=== PATIENT | female | born 1970 | race Caucasian/White ===

== ENCOUNTER → 2016-04-27 | Outpatient (CLI) | payer OTHER ==
[2016-04-27 15:29] LABS: CH 31.9; CHCM 33.1; HCT 40.6 % (34.0-46.0); HDW 2.05; HGB 13.5 gm/dL (11.4-16.0); MCH 32.1 pg (25.0-35.0); MCHC 33.2 g/dL (31.0-37.0); MCV 96.7 fL (80.0-100.0); Mean Platelet Volume 7.3; RDW 12.8 % (11.5-15.5); WBC 11.2 k/uL (3.8-10.6)
[2016-04-27 15:59] LABS: Prolactin 103.8 ng/mL (3.0-18.6)
== END | disposition home or self-care (01) ==
LOC: LABWHC1 14:51
PROVIDERS: ATTEND Obstetrics & Gynecology
DX: N92.0 Excessive and frequent menstruation with regular cycle (principal)
CPT/HCPCS: 36415; 82670; 82947; 83001; 83002; 84146; 84443; 85027

== ENCOUNTER → 2016-05-20 | Outpatient (CLI) | payer OTHER | END | disposition home or self-care (01) | LOC: LABWHC1 11:03 | PROVIDERS: ATTEND Obstetrics & Gynecology | DX: E03.9 Hypothyroidism, unspecified (principal) | CPT/HCPCS: 36415; 84432; 84439; 84481; 86800 ==

== ENCOUNTER → 2016-06-15 | Outpatient (CLI) | payer OTHER ==
[2016-06-15 10:39] LABS: Basophils # (A) 0.1 k/uL (0-0.2); Basophils % (A) 1 %; CH 31.6; CHCM 32.7; Eosinophils # (A) 0.1 k/uL (0-0.7); Eosinophils % (A) 1 %; HCT 41.6 % (34.0-46.0); HDW 2.18; HGB 13.6 gm/dL (11.4-16.0); Luc # (Auto) 0.23; Luc % (Auto) 3; Lymphocytes # (A) 2.1 k/uL (1.0-4.8); Lymphocytes % (A) 24 %; MCH 31.7 pg (25.0-35.0); MCHC 32.7 g/dL (31.0-37.0); MCV 96.9 fL (80.0-100.0); Mean Platelet Volume 6.8; Monocytes # (A) 0.5 k/uL (0-1.0); Monocytes % (A) 5 %; Neutrophils # (A) 5.7 k/uL (1.3-7.7); Neutrophils % (A) 66 %; RBC 4.29 m/uL (3.80-5.40); RDW 13.6 % (11.5-15.5); WBC 8.6 k/uL (3.8-10.6); WBC (Perox) 8.96
== END | disposition home or self-care (01) ==
LOC: LABPAT 10:01
PROVIDERS: ATTEND Obstetrics & Gynecology
DX: Z01.818 Encounter for other preprocedural examination (principal)
CPT/HCPCS: 85025

== ENCOUNTER 2016-06-18 09:58 | Day surgery (SDC) | payer OTHER ==
[2016-06-16 12:42] VITALS: BMI 34.1
[~2016-06-18 09:58] MED LIST: HYDROmorphone 1 MG/ML 1 ML SYRINGE IVP PRN; LACTATED RINGERS 1,000 ML IV SCH; MIDAZOLAM 2 MG/2 ML VIAL IV PRN; ONDANSETRON 4 MG/2 ML VIAL IVP ONE; Pre Op ABX Message 1 EACH MISC MISCELLANE ONE
[2016-06-18] MEDS ORDERED: LIDOCAINE 1% 20 ML VIAL (10MG/ML) FOR IV START INTRADERMA ONE (10:50)
--- NOTE | 2016-06-18 11:13 | P.HPOB ---
History of Present Illness H&P Date: 06/18/16 Chief Complaint: Menorrhagia Patient is a 45-year-old female with very heavy periods. She notes that she bleeds for 5-7 days with very very heavy bleeding every cycle. 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 She is scheduled for D&C hysteroscopy to verify that there is no other abnormal tissue present and she would like a NovaSure to try and stop the bleeding that she can have normal functioning. She is recently bleeding almost every 2 weeks. On physical exam vital signs are stable and afebrile. Heart regular, lungs clear, extremities without pain. Pelvic exam is otherwise unremarkable. Abdomen is soft and nontender bowel sounds are noted. Assessment menorrhagia. Plan D&C hysteroscopy with NovaSure. Risks/benefits/alternatives were reviewed in detail and all questions have been answered for the patient prior to proceeding to the operating room. Past Medical History Past Medical History: Fibromyalgia, Hypertension, Thyroid Disorder History of Any Multi-Drug Resistant Organisms: None Reported Past Surgical History: Back Surgery, Tubal Ligation Additional Past Surgical History / Comment(s): D & C Past Anesthesia/Blood Transfusion Reactions: No Reported Reaction Past Psychological History: Bipolar Smoking Status: Current every day smoker Past Alcohol Use History: Occasional Additional Past Alcohol Use History / Comment(s): SMOKES 1/2 PPD SINCE 1996 OR LONGER Past Drug Use History: None Reported - Past Family History Father Family Medical History: Deep Vein Thrombosis (DVT) Medications and Allergies Home Medications Medication Instructions Recorded Confirmed Type Chlorthalidone [Hygroton] 25 mg PO DAILY 03/14/14 06/16/16 History clonazePAM [Clonazepam] 0.5 mg PO DIRECTED PRN 03/16/14 06/18/16 History traZODone HCL [Desyrel] 50 mg PO HS 03/16/14 06/16/16 History ARIPiprazole [Abilify] 5 mg PO HS 06/16/16 06/16/16 History Cyclobenzaprine [Flexeril] 10 mg PO HS 06/16/16 06/16/16 History DULoxetine HCL [Cymbalta] 60 mg PO HS 06/16/16 06/16/16 History Gabapentin 800 mg PO TID 06/16/16 06/16/16 History HYDROcodone/APAP 7.5-325MG [[place] 1 tab PO BID 06/16/16 06/16/16 History 7.5-325] Levothyroxine Sodium [Synthroid] 50 mcg PO DAILY 06/16/16 06/16/16 History amLODIPine [Norvasc] 5 mg PO DAILY 06/16/16 06/16/16 History lamoTRIgine [LaMICtal] 150 mg PO BID 06/16/16 06/16/16 History Allergies Allergy/AdvReac Type Severity Reaction Status Date / Time quetiapine fumarate AdvReac Intermediate Confusion Verified 06/18/16 10:36 [From Seroquel] Exam Osteopathic Statement: *. No significant issues noted on an osteopathic structural exam other than those noted in the History and Physical/Consult. - Vital Signs Vital signs: Vital Signs Temp Pulse Resp BP Pulse Ox 06/18/16 10:56 98.1 F 86 16 161/91 98
[2016-06-18 11:21] LABS: Anion Gap 9 mmol/L; Blood Urea Nitrogen 21 mg/dL (7-17); Calcium 9.1 mg/dL (8.4-10.2); Carbon Dioxide 22 mmol/L (22-30); Chloride 110 mmol/L (98-107); Glucose 93 mg/dL (74-99); Non-African American GFR(MDRD) >60 (>60 ml/min/1.73 sqM); Potassium 4.4 mmol/L (3.5-5.1); Sodium 141 mmol/L (137-145)
[2016-06-18] MEDS ORDERED: PROPOFOL 10 MG/ML 20 ML VIAL IV ONE (11:35)
[2016-06-18] MEDS ORDERED: MIDAZOLAM 2 MG/2 ML VIAL ONE (11:35)
[2016-06-18] MEDS ORDERED: fentaNYL (PF) 50 MCG/ML 2 ML AMP ONE (11:35)
[2016-06-18] MEDS ORDERED: LIDOCAINE 1% INJ 10MG/ML (20 ML MDV) ONE (11:35)
[2016-06-18] MEDS ORDERED: ROCURONIUM BROMIDE 10 MG/ML 10 ML VIAL IV ONE ×2 (11:35)
[2016-06-18] MEDS ORDERED: KETOROLAC 30 MG/ML 1 ML VIAL ONE (11:35)
--- NOTE | 2016-06-18 12:07 | P.OP ---
Date of Procedure: 06/18/16 Preoperative Diagnosis: Menorrhagia Postoperative Diagnosis: Same Procedure(s) Performed: D&C with hysteroscopy and NovaSure Anesthesia: SKYLER Surgeon: Zain Parker Estimated Blood Loss (ml): 3 Pathology: other (Urine curettings) Condition: stable Disposition: same day Operative Findings: Tissue pathology pending Description of Procedure: Patient was taken to the operating suite where a general anesthetic was found be adequate. She was prepped and draped in the normal sterile fashion and placed in the dorsal lithotomy position. Initially a weighted speculum was inserted into the vagina and the anterior lip cervix was grasped with a single- tooth tenaculum. Cervix was then dilated and camera was inserted. No gross pathology was noted therefore camera was removed and sharp curettings of the endometrium were obtained. This tissue was collected and placed on Telfa. Once accomplished NovaSure system was inserted with length of 4 and a width of 3 it was tested. Once it passes patency test it was enabled and then activated and burned for 2 minutes. Conclusion the burn system was removed and camera was reinserted excellent burn was noted at this point. Sponge, lap, needle counts were correct 2 all instruments were removed and patient was taken to the recovery room in stable and satisfactory condition. Plan - Discharge Summary New Discharge Prescriptions: Ibuprofen [Motrin] 600 mg PO Q6HR PRN #30 tab PRN Reason: Pain Discharge Medication List Chlorthalidone [Hygroton] 25 mg PO DAILY 03/14/14 [History] clonazePAM [Clonazepam] 0.5 mg PO DIRECTED PRN 03/16/14 [History] traZODone HCL [Desyrel] 50 mg PO HS 03/16/14 [History] ARIPiprazole [Abilify] 5 mg PO HS 06/16/16 [History] Cyclobenzaprine [Flexeril] 10 mg PO HS 06/16/16 [History] DULoxetine HCL [Cymbalta] 60 mg PO HS 06/16/16 [History] Gabapentin 800 mg PO TID 06/16/16 [History] HYDROcodone/APAP 7.5-325MG [[place] 7.5-325] 1 tab PO BID 06/16/16 [History] Levothyroxine Sodium [Synthroid] 50 mcg PO DAILY 06/16/16 [History] amLODIPine [Norvasc] 5 mg PO DAILY 06/16/16 [History] lamoTRIgine [LaMICtal] 150 mg PO BID 06/16/16 [History] Ibuprofen [Motrin] 600 mg PO Q6HR PRN #30 tab 06/18/16 [Rx] Follow up Appointment(s)/Referral(s): Zain Parker DO [Doctor of Osteopathic Medicine] - 2 Weeks Activity/Diet/Wound Care/Special Instructions: No heavy lifting, limit stairs and driving and pelvic rest. If any high temperatures, heavy bleeding, or severe pain call my office
[2016-06-18 12:22] VITALS: TEMP 97.7
[2016-06-18 13:27] VITALS: BP 169/95; PULSE 87; RESP 18
== END 2016-06-18 13:45 | disposition home or self-care (01) ==
LOC: OR 09:58
PROVIDERS: ATTEND Obstetrics & Gynecology
DX: N92.0 Excessive and frequent menstruation with regular cycle (principal); N93.8 Other specified abnormal uterine and vaginal bleeding; N85.9 Noninflammatory disorder of uterus, unspecified; M79.7 Fibromyalgia; I10 Essential (primary) hypertension; E07.9 Disorder of thyroid, unspecified; F31.9 Bipolar disorder, unspecified; F17.200 Nicotine dependence, unspecified, uncomplicated; Z79.891 Long term (current) use of opiate analgesic; Z79.899 Other long term (current) drug therapy; Z98.51 Tubal ligation status
CPT/HCPCS: 58563; 81025; 88305; 80048; J2250; J2405; J2001; J3010; J1885; J2704

== ENCOUNTER → 2016-08-14 | Outpatient (CLI) | payer OTHER ==
[2016-08-14 16:43] LABS: Follicle Stimulating Hormone 4.8 mIU/mL; Prolactin 27.2 ng/mL (3.0-18.6)
== END | disposition home or self-care (01) ==
LOC: LABWHC1 15:58
PROVIDERS: ATTEND Internal Medicine Endocrinology, Diabetes & Metabolism
DX: E05.90 Thyrotoxicosis, unspecified without thyrotoxic crisis or storm (principal)
CPT/HCPCS: 36415; 82670; 83001; 83002; 84146; 84439; 84443

== ENCOUNTER → 2017-03-22 | Outpatient (CLI) | payer OTHER ==
--- NOTE | 2017-03-23 11:24 | MM ---
Reason for exam: screening (asymptomatic). Last mammogram was performed 1 year and 6 months ago. History: Took hormonal contraceptives for 7 years. Physical Findings: A clinical breast exam by your physician is recommended on an annual basis and results should be correlated with mammographic findings. MG Screening Mammo w CAD Bilateral CC and MLO view(s) were taken. Prior study comparison: September 26, 2015, bilateral MG screening mammo w CAD. July 27, 2014, left breast MG work up mamm w CAD LT. The breast tissue is heterogeneously dense. This may lower the sensitivity of mammography. Focal asymmetry 4.5cm from nipple right central upper breast. ASSESSMENT: Incomplete: need additional imaging evaluation, BI-RAD 0 RECOMMENDATION: Special view mammogram of the right breast. If lesion persists on supplemental views, image directed ultrasound is recommended. [facility] will attempt to contact patient to return for supplemental views and ultrasound if indicated.
== END | disposition home or self-care (01) ==
LOC: RADMAMWWP 16:13
PROVIDERS: ATTEND Internal Medicine
DX: Z12.31 Encounter for screening mammogram for malignant neoplasm of breast (principal)
CPT/HCPCS: 77067

== ENCOUNTER → 2017-03-31 | Outpatient (CLI) | payer OTHER ==
--- NOTE | 2017-03-31 10:30 | MM ---
Reason for exam: additional evaluation requested from abnormal screening. Last mammogram was performed less than 1 month ago. History: Took hormonal contraceptives for 7 years. Physical Findings: Nurse did not find any significant physical abnormalities on exam. MG Work Up Mamm w CAD RT Spot compression CC, spot compression MLO, and LM view(s) were taken of the right breast. Prior study comparison: March 22, 2017, bilateral MG screening mammo w CAD. September 26, 2015, bilateral MG screening mammo w CAD. There are scattered fibroglandular densities. No distinct lesion on additional views. These results were verbally communicated with the patient and result sheet given to the patient on 03/31/17. ASSESSMENT: Negative, BI-RAD 1 RECOMMENDATION: Return to routine screening mammogram schedule for both breasts.
== END | disposition home or self-care (01) ==
LOC: RADMAMWWP 09:39
PROVIDERS: ATTEND Internal Medicine
DX: R92.8 Other abnormal and inconclusive findings on diagnostic imaging of breast (principal)
CPT/HCPCS: 77065

== ENCOUNTER 2019-10-22 18:27 | Observation (INO) | payer OTHER ==
[2019-10-22] MEDS ORDERED: ASPIRIN 81 MG PO STA (19:20)
[2019-10-22] MEDS ORDERED: SODIUM CHLORIDE 0.9% 1,000 ML IV STA ×2 (19:20)
--- NOTE | 2019-10-22 19:46 | XR ---
EXAMINATION TYPE: XR chest 2V DATE OF EXAM: 10/22/2019 COMPARISON: NONE HISTORY: Pain TECHNIQUE: 2 views FINDINGS: Heart and mediastinum are normal. Lungs are clear. Diaphragm is normal. Bony thorax appears normal. IMPRESSION: Normal chest.
--- NOTE | 2019-10-22 20:11 | ED ---
Recheck HPI - General Chief Complaint: Recheck/Abnormal Lab/Rx Stated Complaint: Hypertensive Time Seen by Provider: 10/22/19 18:50 Source: patient, RN notes reviewed, old records reviewed Mode of arrival: ambulatory Limitations: no limitations - History of Present Illness Initial Comments: Patient 48-year-old female presents to return today with abnormal blood pressures today. She states that she isn't feeling stress complaining of a headache. She states that she was at work today and had some pain go down the right arm. She went to her work's office and they took her blood pressure. Was found be 190/100. They sent her home. She states she went home and slept and woke up with no further arm pain. She states that she rechecked her blood p ressure continued to be elevated to 158/100. She also complains of pain between her bra strap and her shoulder blades, and occasional pain going to the left jaw and neck today. She denies current chest pain at this time. Patient states that she has had lisinopril and amlodipine to manage her blood pressure. She is a smoker. She does report positive family history of heart disease. - Related Data Home Medications Medication Instructions Recorded Confirmed Chlorthalidone [Hygroton] 25 mg PO DAILY 03/14/14 06/16/16 clonazePAM [Clonazepam] 0.5 mg PO DIRECTED PRN 03/16/14 06/18/16 traZODone HCL [Desyrel] 50 mg PO HS 03/16/14 06/16/16 ARIPiprazole [Abilify] 5 mg PO HS 06/16/16 06/16/16 Cyclobenzaprine [Flexeril] 10 mg PO HS 06/16/16 06/16/16 DULoxetine HCL [Cymbalta] 60 mg PO HS 06/16/16 06/16/16 Gabapentin 800 mg PO TID 06/16/16 06/16/16 HYDROcodone/APAP 7.5-325MG [[place] 1 tab PO BID 06/16/16 06/16/16 7.5-325] Levothyroxine Sodium [Synthroid] 50 mcg PO DAILY 06/16/16 06/16/16 amLODIPine [Norvasc] 5 mg PO DAILY 06/16/16 06/16/16 lamoTRIgine [LaMICtal] 150 mg PO BID 06/16/16 06/16/16 Previous Rx's Medication Instructions Recorded Ibuprofen [Motrin] 600 mg PO Q6HR PRN #30 tab 06/18/16 Allergies Allergy/AdvReac Type Severity Reaction Status Date / Time quetiapine fumarate AdvReac Intermediate Confusion Verified 10/22/19 18:29 [From Seroquel] Review of Systems ROS Statement: Those systems with pertinent positive or pertinent negative responses have been documented in the HPI. ROS Other: All systems not noted in ROS Statement are negative. Past Medical History Past Medical History: Fibromyalgia, Hypertension, Osteoarthritis (OA), Thyroid Disorder History of Any Multi-Drug Resistant Organisms: None Reported, MRSA Date of last positivie culture/infection: stomach MDRO Source:: 2011 Past Surgical History: Back Surgery, Tubal Ligation, Uterine Ablation Additional Past Surgical History / Comment(s): D& C Past Psychological History: Anxiety, Bipolar, Depression Smoking Status: Current every day smoker Past Alcohol Use History: Rare Past Drug Use History: Marijuana General Exam - General Exam Comments Initial Comments: Alert and oriented 38 rolled female. No significant distress. Limitations: no limitations General appearance: alert, in no apparent distress Head exam: Present: atraumatic, normocephalic, normal inspection Eye exam: Present: normal appearance, PERRL, EOMI. Absent: scleral icterus, conjunctival injection, periorbital swelling ENT exam: Present: normal exam, mucous membranes moist Neck exam: Present: normal inspection. Absent: tenderness, meningismus, lymphad enopathy Respiratory exam: Present: normal lung sounds bilaterally. Absent: respiratory distress, wheezes, rales, rhonchi, stridor Cardiovascular Exam: Present: regular rate, normal rhythm, normal heart sounds. Absent: systolic murmur, diastolic murmur, rubs, gallop, clicks GI/Abdominal exam: Present: soft, normal bowel sounds. Absent: distended, tenderness, guarding, rebound, rigid Extremities exam: Present: normal inspection, full ROM, normal capillary refill. Absent: tenderness, pedal edema, joint swelling, calf tenderness Back exam: Present: normal inspection Neurological exam: Present: alert, oriented X3, CN II-XII intact Psychiatric exam: Present: normal affect, normal mood Skin exam: Present: warm, dry, intact, normal color. Absent: rash Course Vital Signs 0910/22/19 10/22/19 18:29 19:53 20:00 Temperature 98.1 F Pulse Rate 93 71 75 Respiratory 18 18 20 Rate Blood Pressure 171/92 146/77 143/85 O2 Sat by Pulse 99 Oximetry 10/22/19 10/22/19 20:15 20:45 Temperature Pulse Rate 79 75 Respiratory 18 22 Rate Blood Pressure 143/85 141/76 O2 Sat by Pulse Oximetry Medical Decision Making - Medical Decision Making [id number] female presents today for concern for abnormal blood pressures, and description of chest pressure between her shoulder blades and occasional jaw pain. Patient this time has negative troponin. No significant EKG change. She has a positive risk factors including smoking and family history of heart disease and labile blood pressure was going on today. I discussed possible cardiac obstipation she is agreeable to this. Patient's case was discussed with Dr. Espinal Discussed the Case with Dr. Warner. - Lab Data Result diagrams: 10/22/19 19:55 10/22/19 19:55 Lab Results 10/22/19 10/22/19 10/22/19 Range/Units 19:55 19:55 19:55 WBC 10.8 H (3.8-10.6) k/uL RBC 4.54 (3.80-5.40) m/uL Hgb 13.8 (11.4-16.0) gm/dL Hct 42.2 (34.0-46.0) % MCV 93.0 (80.0-100.0) fL MCH 30.4 (25.0-35.0) pg MCHC 32.7 (31.0-37.0) g/dL RDW 12.9 (11.5-15.5) % Plt Count 284 (150-450) k/uL Neutrophils % 58 % Lymphocytes % 33 % Monocytes % 5 % Eosinophils % 3 % Basophils % 1 % Neutrophils # 6.3 (1.3-7.7) k/uL Lymphocytes # 3.6 (1.0-4.8) k/uL Monocytes # 0.5 (0-1.0) k/uL Eosinophils # 0.3 (0-0.7) k/uL Basophils # 0.1 (0-0.2) k/uL PT 9.5 (9.0-12.0) sec INR 0.9 (<1.2) APTT 25.0 (22.0-30.0) sec Sodium 136 L (137-145) mmol/L Potassium 4.0 (3.5-5.1) mmol/L Chloride 107 (98-107) mmol/L Carbon Dioxide 22 (22-30) mmol/L Anion Gap 7 mmol/L BUN 18 H (7-17) mg/dL Creatinine 0.56 (0.52-1.04) mg/dL Est GFR (CKD-EPI)AfAm >90 (>60 ml/min/1.73 sqM) Est GFR (CKD-EPI)NonAf >90 (>60 ml/min/1.73 sqM) Glucose 100 H (74-99) mg/dL Calcium 9.1 (8.4-10.2) mg/dL Magnesium 2.1 (1.6-2.3) mg/dL Total Bilirubin 0.5 (0.2-1.3) mg/dL AST 32 (14-36) U/L ALT 25 (4-34) U/L Alkaline Phosphatase 58 (38-126) U/L Troponin I (0.000-0.034) ng/mL NT-Pro-B Natriuret Pep pg/mL Total Protein 7.0 (6.3-8.2) g/dL Albumin 4.1 (3.5-5.0) g/dL Amylase 35 (30-110) U/L Lipase 54 (23-300) U/L 10/22/19 10/22/19 Range/Units 19:55 19:55 WBC (3.8-10.6) k/uL RBC (3.80-5.40) m/uL Hgb (11.4-16.0) gm/dL Hct (34.0-46.0) % MCV (80.0-100.0) fL MCH (25.0-35.0) pg MCHC (31.0-37.0) g/dL RDW (11.5-15.5) % Plt Count (150-450) k/uL Neutrophils % % Lymphocytes % % Monocytes % % Eosinophils % % Basophils % % Neutrophils # (1.3-7.7) k/uL Lymphocytes # (1.0-4.8) k/uL Monocytes # (0-1.0) k/uL Eosinophils # (0-0.7) k/uL Basophils # (0-0.2) k/uL PT (9.0-12.0) sec INR (<1.2) APTT (22.0-30.0) sec Sodium (137-145) mmol/L Potassium (3.5-5.1) mmol/L Chloride (98-107) mmol/L Carbon Dioxide (22-30) mmol/L Anion Gap mmol/L BUN (7-17) mg/dL Creatinine (0.52-1.04) mg/dL Est GFR (CKD-EPI)AfAm (>60 ml/min/1.73 sqM) Est GFR (CKD-EPI)NonAf (>60 ml/min/1.73 sqM) Glucose (74-99) mg/dL Calcium (8.4-10.2) mg/dL Magnesium (1.6-2.3) mg/dL Total Bilirubin (0.2-1.3) mg/dL AST (14-36) U/L ALT (4-34) U/L Alkaline Phosphatase (38-126) U/L Troponin I <0.012 (0.000-0.034) ng/mL NT-Pro-B Natriuret Pep 96 pg/mL Total Protein (6.3-8.2) g/dL Albumin (3.5-5.0) g/dL Amylase (30-110) U/L Lipase (23-300) U/L 10/22/19 20:46 EKG shows normal sinus rhythm and T-wave abnormality considering inferior ischemia. Abnormal EKG. Ventricular rate 77 bpm. Verbal 158 ms. QS duration 74 ms. QT QTc is 376/425 ms. Disposition Clinical Impression: Atypical chest pain Disposition: ADMITTED IP TO THIS [facility] Condition: Stable Is patient prescribed a controlled substance at d/c from ED?: No Referrals: None,Stated [Primary Care Provider] - 1-2 days Time of Disposition: 21:37
[2019-10-22 20:13] LABS: Basophils # (A) 0.1 k/uL (0-0.2); Basophils % (A) 1 %; Eosinophils # (A) 0.3 k/uL (0-0.7); Eosinophils % (A) 3 %; HCT 42.2 % (34.0-46.0); HGB 13.8 gm/dL (11.4-16.0); Lymphocytes # (A) 3.6 k/uL (1.0-4.8); Lymphocytes % (A) 33 %; MCH 30.4 pg (25.0-35.0); MCHC 32.7 g/dL (31.0-37.0); Mean Platelet Volume 7.6; Monocytes # (A) 0.5 k/uL (0-1.0); Monocytes % (A) 5 %; Neutrophils # (A) 6.3 k/uL (1.3-7.7); Neutrophils % (A) 58 %; Platelet Count 284 k/uL (150-450); RBC 4.54 m/uL (3.80-5.40); RDW 12.9 % (11.5-15.5); WBC 10.8 k/uL (3.8-10.6)
[2019-10-22 20:16] LABS: ALT 25 U/L (4-34); AST 32 U/L (14-36); African American GFR (CKD) >90 (>60 ml/min/1.73 sqM); Albumin 4.1 g/dL (3.5-5.0); Alkaline Phosphatase 58 U/L (38-126); Amylase 35 U/L (30-110); Anion Gap 7 mmol/L; Blood Urea Nitrogen 18 mg/dL (7-17); Calcium 9.1 mg/dL (8.4-10.2); Carbon Dioxide 22 mmol/L (22-30); Chloride 107 mmol/L (98-107); Glucose 100 mg/dL (74-99); Magnesium 2.1 mg/dL (1.6-2.3); Non-African American GFR(CKD) >90 (>60 ml/min/1.73 sqM); Sodium 136 mmol/L (137-145); Total Bilirubin 0.5 mg/dL (0.2-1.3)
[2019-10-22 20:23] LABS: INR 0.9 (<1.2); Prothrombin Time 9.5 sec (9.0-12.0)
[2019-10-22] MEDS ORDERED: KETOROLAC 15 MG/ML 1 ML VIAL IVP STA (20:38)
[2019-10-22] MEDS ORDERED: NITROGLYCERIN SL TABS 0.4 MG TAB SUBLINGUAL PRN (21:37)
--- NOTE | 2019-10-23 00:03 | P.HPIM ---
History of Present Illness H&P Date: 10/22/19 The patient is a 48-year-old female with a PMH of hypertension, tobacco abuse, and morbid obesity who presented to the ED with complaints of headache and dizziness. 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 She also felt generally unwell and felt dizzy (blurred vision) intermittently. She had her blood pressure checked at the pharmacy in [facility] and was found to be hypertensive at 190s/100s. She then went home, took a nap, and upon awakening noted that her symptoms had improved significantly. She however and then developed a mid upper back sharp pain, worsened with certain movements, 5 out of 10, nonradiating, no alleviating factors. She checked her blood pressure again and again was noted to be elevated 150s/100s, so she decided to come to the emergency room. She reports that her father and grandfather had MIs in their 60s and 70s respectively. She notes that her pain had resolved after she received Toradol in the emergency room. At time of interview, she reported feeling back to her baseline and denied any active complaints. Denied experiencing shortness of breath. Denied nausea, vomiting, diaphoresis. Denied syncope, abdominal pain, or leg pain. Denied weakness, numbness, tingling. Denied lifting anything particularly heavy at work. In the emergency room, a chest x-ray was unremarkable with EKG showing normal sinus rhythm at 77 bpm with T-wave inversions in leads V4 to V6 and biphasic T waves in lead aVF. Troponin was less than 0.012, WBC count 10.8, sodium 136, proBNP 96, BUN 18, creatinine 0.56. Review of Systems Pertinent positives and negatives as discussed in HPI, a complete review of systems was performed and all other systems are negative. Past Medical History Past Medical History: Fibromyalgia, Hypertension, Osteoarthritis (OA), Thyroid Disorder History of Any Multi-Drug Resistant Organisms: MRSA Date of last positivie culture/infection: stomach MDRO Source:: 2011 Past Surgical History: Back Surgery, Tubal Ligation, Uterine Ablation Additional Past Surgical History / Comment(s): D& C Past Anesthesia/Blood Transfusion Reactions: No Reported Reaction Smoking Status: Current every day smoker - Past Family History Father Family Medical History: Myocardial Infarction (PA) Mother Family Medical History: Diabetes Mellitus Sister(s) Family Medical History: Diabetes Mellitus, Fibromyalgia, Osteoarthritis (OA), Rheumatoid Arthritis (RA) Son(s) Family Medical History: No Reported History Medications and Allergies Home Medications Medication Instructions Recorded Confirmed Type ARIPiprazole [Abilify] 5 mg PO HS 06/16/16 10/22/19 History DULoxetine HCL [Cymbalta] 60 mg PO HS 06/16/16 10/22/19 History amLODIPine [Norvasc] 5 mg PO DAILY 06/16/16 10/22/19 History lamoTRIgine [LaMICtal] 200 mg PO BID 06/16/16 10/22/19 History Lisinopril [Zestril] 20 mg PO DAILY 10/22/19 10/22/19 History Allergies Allergy/AdvReac Type Severity Reaction Status Date / Time quetiapine fumarate AdvReac Intermediate Confusion Verified 10/22/19 22:45 [From Seroquel] Physical Exam Vitals: Vital Signs Temp Pulse Resp BP Pulse Ox 10/22/19 22:28 98.1 F 78 18 140/77 98 10/22/19 22:00 97.8 F 75 16 147/88 10/22/19 21:30 85 20 130/82 10/22/19 21:00 77 20 141/76 10/22/19 20:45 75 22 141/76 10/22/19 20:15 79 18 143/85 10/22/19 20:00 75 20 143/85 10/22/19 19:53 71 18 146/77 10/22/19 18:29 98.1 F 93 18 171/92 99 Intake and Output 10/22/19 10/22/19 10/23/19 14:59 22:59 06:59 Other: Voiding Method Toilet Weight 102.058 kg General: non toxic, no distress, appears at stated age, morbidly obese Derm: no unusual rashes/lesions no unusual ecchymoses, warm, dry Head: atraumatic, normocephalic, symmetric Eyes: EOMI, no lid lag, anicteric sclera, pupils equal round reactive to light ENT: Nose and ears atraumatic, no thrush, no pharyngeal erythema Neck: No thyromegaly, no cervical lymphadenopathy, trachea midline, supple Mouth: no lip lesion, mucus membranes moist Cardiovascular: S1S2 reg, no murmur, positive posterior tibial pulse bilateral, no edema, capillary refill less than 2 seconds Lungs: CTA bilateral, no rhonchi, no rales , no accessory muscle use Abdominal: soft, nontender to palpation, no guarding, no appreciable organomegaly, normal bowel sounds Ext: no gross muscle atrophy, muscle strength 5 out of 5 in all 4 extremities grossly, no contractures, right forearm tenderness to palpation with an overlying skin changes noted, thoracic spine mild tenderness to palpation Neuro: CN II-XI grossly intact, light touch intact all 4 extremities, finger to nose within normal limits, Psych: Alert, oriented, appropriate affect Results CBC & Chem 7: 10/22/19 19:55 10/22/19 19:55 Labs: Abnormal Lab Results - Last 24 Hours (Table) 10/22/19 10/22/19 Range/Units 19:55 19:55 WBC 10.8 H (3.8-10.6) k/uL Sodium 136 L (137-145) mmol/L BUN 18 H (7-17) mg/dL Glucose 100 H (74-99) mg/dL Thrombosis Risk Factor Assmnt - Choose All That Apply Any of the Below Risk Factors Present?: Yes Each Factor Represents 1 point: Age 41-60 years, Obesity (BMI >25) Other Risk Factors: No Other congenital or acquired thrombophilia - If yes, enter type in comment: No Thrombosis Risk Factor Assessment Total Risk Factor Score: 2 Thrombosis Risk Factor Assessment Level: Low Risk Assessment and Plan Plan: Hypertensive urgency, now resolved -Increase home antihypertensives -Cardiac monitoring Right forearm and mid back pain, likely musculoskeletal in origin -Pain control as needed Leukocytosis -No signs of active infection at this time -Monitor for now DVT prophylaxis -Heparin subq The patient is admitted with an anticipated less than 2 midnight stay for evaluation of back pain CODE STATUS: Full Code Discussed with: Patient Anticipated discharge date: 10/[address]: Home A total of 35 minutes was spent on the care of this complex patient more than 50% of the time was spent in counseling and care coordination.
[2019-10-23 06:50] LABS: HCT 39.5 % (34.0-46.0); HGB 12.8 gm/dL (11.4-16.0); MCH 30.6 pg (25.0-35.0); MCHC 32.5 g/dL (31.0-37.0); MCV 93.9 fL (80.0-100.0); Mean Platelet Volume 7.8; Platelet Count 269 k/uL (150-450); RDW 12.9 % (11.5-15.5); WBC 8.1 k/uL (3.8-10.6)
[2019-10-23 07:08] LABS: Cholesterol 175 mg/dL (<200); HDL Cholesterol 27 mg/dL (40-60); LDL Cholesterol,Calculated 103 mg/dL (0-99); Triglycerides 224 mg/dL (<150)
[2019-10-23] MEDS ORDERED: HEPARIN SODIUM,PORCINE 5,000 UNIT/ML 1 ML VIAL SQ SCH (08:00)
[2019-10-23] MEDS ORDERED: ACETAMINOPHEN TAB 325 MG TAB PO STA (08:43)
[2019-10-23] MEDS ORDERED: ASPIRIN 325 MG TAB PO SCH (09:00)
[2019-10-23] MEDS ORDERED: amLODIPine 10 MG TAB PO SCH (09:00)
[2019-10-23] MEDS ORDERED: ATORVASTATIN 20 MG TAB PO SCH (09:00)
[2019-10-23] MEDS ORDERED: ASPIRIN 81 MG PO SCH (09:00)
[2019-10-23] MEDS ORDERED: amLODIPine 5 MG TAB PO SCH (09:00)
[2019-10-23] MEDS ORDERED: lamoTRIgine 100 MG TAB PO SCH (09:00)
[2019-10-23] MEDS ORDERED: lisinopriL 10 MG TAB PO SCH (09:00)
--- NOTE | 2019-10-23 09:40 | P.CRDCN ---
History of Present Illness History of present illness: HISTORY OF PRESENTING ILLNESS This is a pleasant 48-year-old female past medical history significant for hypertension, fibromyalgia and chronic nicotine dependence. 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 We have been asked to see in consultation for chest pain. She states all day yesterday while at work was feeling weak, tired and had a headache. Then started to develop a pain in the back across the mid back where her bra strap rested. The pain in her back seemed exacerbated by activity and exertion and did improve with rest. Sometimes she felt as if movement of her arms made the pain more intense as well. At times she felt a discomfort sensation in the left neck and jaw. She also had pain down the right arm. She walked over to the pharmacy to check her blood pressure and it was 190/100. She has been compliant with her medications. On arrival to the emergency department her blood pressure was 171/92 with a heart rate of 93. Primary team increased her amlodipine to 10 mg daily. DIAGNOSTICS EKG reveals sinus mechanism heart rate [address] depression noted in the inferior leads and T-wave inversions noted laterally. There is no old EKG for comparison. Chest xray negative for an acute cardiopulmonary process. Laboratory reviewed, WBC 10.8 repeat this morning 8.1, hemoglobin 12.8, platelets 269, sodium 136, potassium 4.0, creatinine 0.56, magnesium 2.1, cardiac enzymes negative 3, NT proBNP 96, LDL 103, HDL 27 and total cholesterol 175. Current cardiac medications include lisinopril 20 mg daily and amlodipine 5 mg daily. REVIEW OF SYSTEMS At the time of my exam: CONSTITUTIONAL: Denies fever or chills. CARDIOVASCULAR: Denies chest pain, shortness of breath, orthopnea, PND or palpitations. RESPIRATORY: Denies cough. GASTROINTESTINAL: Denies abdominal pain, diarrhea, constipation, nausea or vomiting. MUSCULOSKELETAL: Denies myalgias. NEUROLOGIC: Denies numbness, tingling or weakness. ENDOCRINE: Denies fatigue, weight change, polydipsia or polyurina. GENITOURINARY: Denies burning, hematuria or urgency with micturation. HEMATOLOGIC: Denies history of anemia or bleeding. PHYSICAL EXAMINATION Blood pressure 131/74 heart rate 79 afebrile and maintaining oxygen saturation on room air. CONSTITUTIONAL: No apparent distress. Obese. HEENT: Head is normocephalic. Pupils are equal, round. Sclerae anicteric. Mucous membranes of the mouth are moist. No JVD. No carotid bruit. CHEST EXAMINATION: Lungs are clear to auscultation. No chest wall tenderness is noted on palpation or with deep breathing. HEART EXAMINATION: Regular rate and rhythm. S1, S2 heard. No murmurs, gallops or rub. ABDOMEN: Soft, nontender. Positive bowel sounds. EXTREMITIES: 2+ peripheral pulses, no lower extremity edema and no calf tenderness. NEUROLOGIC EXAMINATION: Patient is awake, alert and oriented x3. ASSESSMENT Chest pain Abnormal EKG no old for comparison Hypertension, uncontrolled Dyslipidemia Chronic nicotine dependence Obesity, BMI 38 PLAN An acute coronary event has been ruled out. Obtain 2-D echocardiogram and Doppler study to assess cardiac structure and function. Perform stress echocardiogram to assess for stress induced ischemia. Agree with increased dose of amlodipine. Initiate atorvastatin 20 mg daily. If stress test is normal she is stable for discharge from a cardiac perspective. Smoking cessation recommended. Thank you kindly for this consultation. Nurse Practitioner note has been reviewed, I agree with a documented findings and plan of care. Patient was seen and examined. Past Medical History Past Medical History: Fibromyalgia, Hypertension, Osteoarthritis (OA), Thyroid Disorder History of Any Multi-Drug Resistant Organisms: MRSA Date of last positivie culture/infection: stomach MDRO Source:: 2011 Past Surgical History: Back Surgery, Tubal Ligation, Uterine Ablation Additional Past Surgical History / Comment(s): D& C Past Anesthesia/Blood Transfusion Reactions: No Reported Reaction Smoking Status: Current every day smoker - Past Family History Father Family Medical History: Myocardial Infarction ([place]) Mother Family Medical History: Diabetes Mellitus Sister(s) Family Medical History: Diabetes Mellitus, Fibromyalgia, Osteoarthritis (OA), Rheumatoid Arthritis (RA) Son(s) Family Medical History: No Reported History Medications and Allergies Home Medications Medication Instructions Recorded Confirmed Type ARIPiprazole [Abilify] 5 mg PO HS 06/16/16 10/22/19 History DULoxetine HCL [Cymbalta] 60 mg PO HS 06/16/16 10/22/19 History amLODIPine [Norvasc] 5 mg PO DAILY 06/16/16 10/22/19 History lamoTRIgine [LaMICtal] 200 mg PO BID 06/16/16 10/22/19 History Lisinopril [Zestril] 20 mg PO DAILY 10/22/19 10/22/19 History Allergies Allergy/AdvReac Type Severity Reaction Status Date / Time quetiapine fumarate AdvReac Intermediate Confusion Verified 10/22/19 22:45 [From Seroquel] Physical Exam Vitals: Vital Signs Temp Pulse Pulse Resp BP BP Pulse Ox 10/23/19 02:42 97.9 F 79 18 131/74 97 10/22/19 23:30 97.8 F 78 18 128/74 98 10/22/19 22:28 98.1 F 78 18 140/77 98 10/22/19 22:00 97.8 F 75 16 147/88 10/22/19 21:30 85 20 130/82 10/22/19 21:00 77 20 141/76 10/22/19 20:45 75 22 141/76 10/22/19 20:15 79 18 143/85 10/22/19 20:00 75 20 143/85 10/22/19 19:53 71 18 146/77 10/22/19 18:29 98.1 F 93 18 171/92 99 Intake and Output 10/22/19 10/23/19 10/23/19 22:59 06:59 14:59 Other: Voiding Method Toilet # Voids 1 Weight 102.058 kg Results 10/23/19 05:24 10/22/19 19:55 Cardiac Enzymes 10/22/19 10/22/19 10/22/19 Range/Units 19:55 19:55 23:07 AST 32 (14-36) U/L Troponin I <0.012 <0.012 (0.000-0.034) ng/mL 10/23/19 Range/Units 01:32 AST (14-36) U/L Troponin I <0.012 (0.000-0.034) ng/mL Coagulation 10/22/19 Range/Units 19:55 PT 9.5 (9.0-12.0) sec APTT 25.0 (22.0-30.0) sec Lipids 10/23/19 Range/Units 05:24 Triglycerides 224 H (<150) mg/dL Cholesterol 175 (<200) mg/dL HDL Cholesterol 27 L (40-60) mg/dL CBC 10/22/19 10/23/19 Range/Units 19:55 05:24 WBC 10.8 H 8.1 (3.8-10.6) k/uL RBC 4.54 4.20 (3.80-5.40) m/uL Hgb 13.8 12.8 (11.4-16.0) gm/dL Hct 42.2 39.5 (34.0-46.0) % Plt Count 284 269 (150-450) k/uL Comprehensive Metabolic Panel 10/22/19 Range/Units 19:55 Sodium 136 L (137-145) mmol/L Potassium 4.0 (3.5-5.1) mmol/L Chloride 107 (98-107) mmol/L Carbon Dioxide 22 (22-30) mmol/L BUN 18 H (7-17) mg/dL Creatinine 0.56 (0.52-1.04) mg/dL Glucose 100 H (74-99) mg/dL Calcium 9.1 (8.4-10.2) mg/dL AST 32 (14-36) U/L ALT 25 (4-34) U/L Alkaline Phosphatase 58 (38-126) U/L Total Protein 7.0 (6.3-8.2) g/dL Albumin 4.1 (3.5-5.0) g/dL Current Medications Generic Name Dose Route Start Last Admin Trade Name Freq PRN Reason Stop Dose Admin Amlodipine Besylate 10 mg 10/23/19 09:00 Amlodipine 10 Mg Tab PO DAILY [facility] Aripiprazole 5 mg 10/23/19 21:00 Aripiprazole 5 Mg Tab PO HS [facility] Duloxetine HCl 60 mg 10/23/19 21:00 Duloxetine Hcl 60 Mg Capsule.Dr PO HS [facility] Heparin Sodium (Porcine) 5,000 unit 10/23/19 08:00 Heparin Sodium,Porcine 5,000 Unit/Ml 1 Ml Vial SQ Q8HR [facility] Lamotrigine 200 mg 10/23/19 09:00 Lamotrigine 100 Mg Tab PO BID [facility] Lisinopril 20 mg 10/23/19 09:00 Lisinopril 10 Mg Tab PO DAILY [facility] Nitroglycerin 0.4 mg 10/22/19 21:37 Nitroglycerin Sl Tabs 0.4 Mg Tab SUBLINGUAL Q5M PRN Chest Pain Intake and Output 0910/23/19 10/23/19 22:59 06:59 14:59 Other: Voiding Method Toilet # Voids 1 Weight 102.058 kg 10/23/19 05:24 10/22/19 19:55
[2019-10-23 09:45] VITALS: BP 134/61; PULSE 75; RESP 12; TEMP 98
--- NOTE | 2019-10-23 13:00 | ECHOF ---
Referral Reason:chest pain, abn ekg MEASUREMENTS -------- HEIGHT: 162.6 cm WEIGHT: 102.1 kg BP: 131/74 RVIDd: 4.0 cm (< 3.3) IVSd: 1.8 cm (0.6 - 1.1) LVIDd: 3.8 cm (3.9 - 5.3) LVPWd: 1.7 cm (0.6 - 1.1) IVSs: 2.0 cm LVIDs: 2.5 cm LVPWs: 2.3 cm LAESV Index (A-L): 29.41 ml/m Ao Diam: 3.2 cm (2.0 - 3.7) AV Cusp: 2.2 cm (1.5 - 2.6) MV E Christopher: 0.73 m/s MV DecT: 108 ms MV A Christopher: 0.68 m/s MV E/A Ratio: 1.07 RAP: 5.00 mmHg RVSP: 23.89 mmHg FINDINGS -------- Sinus rhythm. This was a technically difficult study with suboptimal views. The left ventricular size is normal. There is severe concentric left ventricular hypertrophy. Ove rall left ventricular systolic function is normal with, an EF between 55 - 60 %. The diastolic fill ing pattern is normal for the age of the patient 10.95. The right ventricle is moderately enlarged. LA is midly dilated 29-33ml/m2. The right atrium was not well visualized. 5.0mg of Lumason was utilized for enhancement of images Interatrial and interventricular septum intact. The aortic valve is trileaflet, and appears structurally normal. No aortic stenosis or regurgitation. The mitral valve is normal. Mild mitral regurgitation is present. The tricuspid valve appears structurally normal. Mild tricuspid regurgitation present. There is n o evidence of pulmonary hypertension. The right ventricular systolic pressure, as measured by Doppl er, is 23.89mmHg. There is no pulmonic regurgitation present. The aortic root size is normal. IVC Not well visulized. There is no pericardial effusion. CONCLUSIONS -------- 1. There is severe concentric left ventricular hypertrophy. 2. Overall left ventricular systolic function is normal with, an EF between 55 - 60 %. 3. The diastolic filling pattern is normal for the age of the patient 10.95 4. The right ventricle is moderately enlarged. 5. LA is midly dilated 29-33ml/m2. 6. The aortic valve is trileaflet, and appears structurally normal. No aortic stenosis or regurgitati on. 7. Mild mitral regurgitation is present. 8. Mild tricuspid regurgitation present. HEAD ANIMAL TRAINER: Yessica Gaona RDCS
--- NOTE | 2019-10-23 14:26 | ECHOS ---
STRESS ECHOCARDIOGRAM LUMASON: Vial INDICATIONS: Chest pain, palpitations MEDICATIONS: BASELINE HEART RATE: 79 BASELINE BLOOD PRESSURE: 132/57 MAXIMUM HEART RATE: 148 MAXIMUM BLOOD PRESSURE: 216/86 85% MPHR: 148 100% MPHR: 174 METS: 7.1 MAXIMUM STAGE REACHED: 2 TOTAL EXERCISE TIME: 6:00 CLINICAL INFORMATION: Baseline rhythm is sinus mechanism. rate 79. normal axis. intervals. Normal echocardiogram. Baseline blood pressure 132/57 mmHg. Patient excess on Lang protocol for 6 minutes reaching peak rate 148 beats per minute,. which is equal to 85% maximum predicted heart rate. Peak blood pressure 216/75 mmHg. Test was terminated due to fatigue. There was no chest pain. Electrocardiograph monitoring revealed no evidence of diagnostic ischemic ST deviation. FINDINGS: Baseline echocardiogram revealed normal wall motion. At peak exercise, there was no hypokinesis or dyskinesis. CONCLUSION: 1. Decreased exercise tolerance with normal echocardiograph response to exercise. 2. Normal stress echocardiogram with no evidence of stress-induced ischemia. MMODL / IJN: [id number] /
--- NOTE | 2019-10-23 14:44 | P.DS ---
Providers Date of admission: 10/22/19 21:27 Expected date of discharge: 10/23/19 Attending physician: Rashad Miller MD Consults: 10/22/19 21:37 Consult Physician Urgent Consulting Provider: Shaggy Tavera Consult Reason/Comments: atypical chest pain Do you want consulting provider notified?: Yes Primary care physician: Stated None Hospital Course: This is a 48-year-old female with past medical history significant for essential presented to the emergency room with dizziness and chest discomfort. Patient was evaluated in the ER and placed on observation. Twelve-lead EKG showed no acute ischemic changes. Serial troponin were negative 3 sets. Patient was seen and evaluated by cardiology. Amlodipine dose increased to 10 mg daily. She underwent an echocardiogram that showed preserved ejection fraction. She also underwent a stress echo that was negative for evidence of ischemia. She was cleared for discharge home. She will follow-up with her PCP as directed. For further details about this hospitalization please refer to the electronic chart. Patient Condition at Discharge: Stable Plan - Discharge Summary Discharge Rx Participant: No New Discharge Prescriptions: New RX: amLODIPine [Norvasc] 10 mg PO DAILY #30 tab Continue RX: lamoTRIgine [LaMICtal] 200 mg PO BID RX: DULoxetine HCL [Cymbalta] 60 mg PO HS RX: ARIPiprazole [Abilify] 5 mg PO HS RX: Lisinopril [Zestril] 20 mg PO DAILY Discontinued amLODIPine [Norvasc] 5 mg PO DAILY Discharge Medication List RX: ARIPiprazole [Abilify] 5 mg PO HS 06/16/16 [History] RX: DULoxetine HCL [Cymbalta] 60 mg PO HS 06/16/16 [History] RX: lamoTRIgine [LaMICtal] 200 mg PO BID 06/16/16 [History] RX: Lisinopril [Zestril] 20 mg PO DAILY 10/22/19 [History] RX: amLODIPine [Norvasc] 10 mg PO DAILY #30 tab 10/23/19 [Rx] Follow up Appointment(s)/Referral(s): Tammy Muniz MD [STAFF PHYSICIAN] - 2 Weeks None,Stated [Primary Care Provider] - 1-2 days Discharge Disposition: HOME SELF-CARE
[2019-10-23] MEDS ORDERED: DULoxetine HCL 60 MG CAPSULE.DR PO SCH (21:00)
[2019-10-23] MEDS ORDERED: ARIPiprazole 5 MG TAB PO SCH (21:00)
== END 2019-10-23 16:48 | disposition home or self-care (01) ==
LOC: EC 18:27 → 1SOBS 21:27
PROVIDERS: ADMIT Family Medicine; ATTEND Family Medicine
DX: R07.89 Other chest pain (principal); I16.0 Hypertensive urgency; R94.31 Abnormal electrocardiogram [ECG] [EKG]; D72.829 Elevated white blood cell count, unspecified; I10 Essential (primary) hypertension; M79.7 Fibromyalgia; M19.90 Unspecified osteoarthritis, unspecified site; E78.5 Hyperlipidemia, unspecified; E07.9 Disorder of thyroid, unspecified; F31.9 Bipolar disorder, unspecified; F41.9 Anxiety disorder, unspecified; E66.01 Morbid (severe) obesity due to excess calories; Z68.38 Body mass index [BMI] 38.0-38.9, adult; M54.6 Pain in thoracic spine; M79.631 Pain in right forearm; F17.200 Nicotine dependence, unspecified, uncomplicated; Z79.890 Hormone replacement therapy; Z79.899 Other long term (current) drug therapy; Z88.8 Allergy status to other drugs, medicaments and biological substances; Z86.14 Personal history of Methicillin resistant Staphylococcus aureus infection; Z98.51 Tubal ligation status; Z83.3 Family history of diabetes mellitus; Z82.69 Family history of other diseases of the musculoskeletal system and connective tissue; Z82.61 Family history of arthritis; Z82.49 Family history of ischemic heart disease and other diseases of the circulatory system
CPT/HCPCS: 96372; 96361; 96374; 99285; 36415; 93005 ×2; 93306; 93351; 83880; 80061; 80053; 82150; 83690; 83735; 84484 ×2; 85025; 85027; 85610; 85730; 71046; G0378 ×2; J1644; J1885; Q9950

== ENCOUNTER → 2021-06-09 | Outpatient (CLI) | payer BC ==
--- NOTE | 2021-06-09 08:30 | US ---
EXAMINATION TYPE: US abdomen complete DATE OF EXAM: 06/09/2021 COMPARISON: NONE CLINICAL HISTORY: R10.10 ABD PAIN. Indigestion EXAM MEASUREMENTS: Liver Length: 19.1 cm Gallbladder Wall: 0.2 cm CBD: 0.5 cm Spleen: 11.0 cm Right Kidney: 12.6 x 5.3 x 1.5 cm Left Kidney: 13.0 x 6.2 x 5.7 cm Pancreas: Tail obscured by overlying bowel gas Liver: ? slightly enlarged Gallbladder: No stones seen Evidence for sonographic Cohn's sign: No CBD: wnl Spleen: wnl Right Kidney: No hydronephrosis or masses seen Left Kidney: No hydronephrosis or masses seen Upper IVC: wnl Abd Aorta: wnl The liver is homogenous. The intrahepatic portion of the IVC and proximal abdominal aorta are within normal limits. There is no evidence of cholelithiasis. Common bile duct is unremarkable. The visu alized portions of the pancreas are homogenous. The spleen is unremarkable. Kidneys are symmetric a nd free of hydronephrosis. No renal lesions are seen. IMPRESSION: Mild hepatomegaly
== END | disposition home or self-care (01) ==
LOC: RADUSWWP 06:44
PROVIDERS: ATTEND Family Medicine
DX: R16.0 Hepatomegaly, not elsewhere classified (principal)
CPT/HCPCS: 76700

== ENCOUNTER → 2021-06-16 | Outpatient (CLI) | payer BC ==
--- NOTE | 2021-06-16 09:29 | NM ---
EXAMINATION TYPE: NM hepatobiliary w EF DATE OF EXAM: 06/16/2021 COMPARISON: Ultrasound abdomen 1 week ago HISTORY: Upper abdominal pain. Epigastric pain with diminished appetite. Nausea and vomiting. TECHNIQUE: After the intravenous administration of 4.1 mCi Tc 99m Mebrofenin hepatobiliary scintigrap hy is performed. Immediate images post injection. FINDINGS: There is satisfactory initial accumulation of tracer by the liver. The gallbladder is visualized wit hin 40 minutes. The small bowel activity is noted within 30 minutes. At one hour 8 ounces of oral e nsure plus is given to mimic CCK and gallbladder ejection fraction is calculated at 86 %, not diminis hed from the normal range. Therefore there is no scintigraphic evidence of cystic or common bile genaro t obstruction to suggest acute cholecystitis or gallbladder hypokinesia. IMPRESSION: Ejection fraction not diminished from the normal range.
== END | disposition home or self-care (01) ==
LOC: RADNMMAIN 06:54
PROVIDERS: ATTEND Family Medicine
DX: R10.10 Upper abdominal pain, unspecified (principal)
CPT/HCPCS: 78226; A9537

== ENCOUNTER 2023-01-11 07:33 | Emergency (ER) | payer BC ==
--- NOTE | 2023-01-11 07:53 | ED ---
General Adult HPI - General Source: patient, RN notes reviewed Mode of arrival: ambulatory Limitations: no limitations <Kishan Gee - Last Filed: 01/11/23 07:51> - General Source: patient, RN notes reviewed <Barbara Suarez - Last Filed: 01/11/23 11:26> - General Stated complaint: High Blood Pressure Time Seen by Provider: 01/11/23 07:51 - History of Present Illness Initial comments: This a 52-year-old female presents emergency department with chief complaint of hypertension. Patient states not been feeling well last week or 2. Patient states she did have recent URI symptoms states that symptoms improved from that. She states she felt very lightheaded, dizzy she checked her blood pressure at her work which she states it was over 200. Patient denies any chest pain. She states she is on 2 medications for hypertension. (Kishan Gee) Patient is a 52-year-old female presented ER chief could've hypertension. Patient states while at work she started feeling slightly dizzy and checked her blood pressure and it was 210/100. Patient reports for the past couple of weeks she's been feeling extremely fatigued, dizzy and off. She states that she is normally taking lisinopril or HCTZ for hypertension and has taken them this morning. Patient also states that she gets extremely dizzy when changing positions. Stating that she hasn't she is about to black out. Patient endorses recent headaches, double blurry vision, mild shortness of breath. Patient denies any chest pain, fevers, chills. She reports that she has a follow-up appointment with her primary care physician on . (Barbara Suarez) - Related Data Home Medications Medication Instructions Recorded Confirmed ARIPiprazole [Abilify] 5 mg PO HS 06/16/16 10/23/19 DULoxetine HCL [Cymbalta] 60 mg PO HS 06/16/16 10/23/19 lamoTRIgine [LaMICtal] 200 mg PO BID 06/16/16 10/23/19 lisinopriL [Zestril] 20 mg PO DAILY 10/22/19 10/23/19 Previous Rx's Medication Instructions Recorded amLODIPine [Norvasc] 10 mg PO DAILY #30 tablet 10/23/19 Allergies Allergy/AdvReac Type Severity Reaction Status Date / Time quetiapine fumarate AdvReac Intermediate Confusion Verified 01/11/23 08:33 [From Seroquel] Review of Systems ROS Other: All systems not noted in ROS Statement are negative. <Kishan Gee - Last Filed: 01/11/23 07:51> ROS Other: All systems not noted in ROS Statement are negative. <Barbara Suarez - Last Filed: 01/11/23 11:26> ROS Statement: Those systems with pertinent positive or pertinent negative responses have been documented in the HPI. Past Medical History Past Medical History: Fibromyalgia, Hypertension, Osteoarthritis (OA), Thyroid Disorder History of Any Multi-Drug Resistant Organisms: MRSA Date of last positivie culture/infection: stomach MDRO Source:: 2011 Past Surgical History: Back Surgery, Tubal Ligation, Uterine Ablation Additional Past Surgical History / Comment(s): D& C Past Anesthesia/Blood Transfusion Reactions: No Reported Reaction Smoking Status: Current every day smoker - Past Family History Father Family Medical History: Myocardial Infarction ([place]) Mother Family Medical History: Diabetes Mellitus Sister(s) Family Medical History: Diabetes Mellitus, Fibromyalgia, Osteoarthritis (OA), Rheumatoid Arthritis ([place]) Son(s) Family Medical History: No Reported History <Kishan Gee - Last Filed: 01/11/23 07:51> General Exam <Kishan Gee - Last Filed: 01/11/23 07:51> General appearance: alert, in no apparent distress Eye exam: Present: normal appearance, PERRL, EOMI. Absent: scleral icterus, conjunctival injection, periorbital swelling Pupils: Present: normal accommodation Respiratory exam: Present: normal lung sounds bilaterally. Absent: respiratory distress, wheezes, rales, rhonchi, stridor Cardiovascular Exam: Present: regular rate, normal rhythm, normal heart sounds. Absent: systolic murmur, diastolic murmur, rubs, gallop, clicks Neurological exam: Present: alert, oriented X3, CN II-XII intact Psychiatric exam: Present: normal affect, normal mood Skin exam: Present: warm, dry, intact, normal color. Absent: rash <Barbara Suarez - Last Filed: 01/11/23 11:26> - General Exam Comments Initial Comments: Visual Physical Exam Vital signs reviewed General: Well-appearing, nontoxic, no acute distress. Head: Normocephalic, atraumatic Eyes: PERRLA, EOMI ENT: Airway patent Chest: Nonlabored breathing Skin: No visual rash, normal skin tone Neuro: Alert and oriented 3 Musculoskeletal: No gross abnormalities (Kishan Gee) Course Vital Signs 01/11/23 01/11/23 08:29 10:33 Temperature 98.3 F Pulse Rate 85 83 Respiratory 18 Rate Blood Pressure 176/82 169/102 O2 Sat by Pulse 100 Oximetry Medical Decision Making <Kishan Gee - Last Filed: 01/11/23 07:51> - Lab Data Result diagrams: 01/11/23 08:07 01/11/23 08:07 - EKG Data -: EKG Interpreted by Me <Barbara Suarez - Last Filed: 01/11/23 11:26> - Medical Decision Making I completed the quick note portion of this chart signed Kishan Gee PA-C (Kishan Gee) Was pt. sent in by a medical professional or institution (JESSIE Cortes, MELTER LOADER, urgent care, hospital, or shelter...) When possible be specific @ -No Did you speak to anyone other than the patient for history (EMS, parent, family, police, friend...)? What history was obtained from this source @ -No Did you review nursing and triage notes (agree or disagree)? Why? @ -I reviewed and agree with nursing and triage notes Were old charts reviewed (outside hosp., previous admission, EMS record, old EKG, old radiological studies, urgent care reports/EKG's, shelter records)? Report findings @ -No old charts were reviewed Differential Diagnosis (chest pain, altered mental status, abdominal pain women, abdominal pain men, vaginal bleeding, weakness, fever, dyspnea, syncope, headache, dizziness, GI bleed, back pain, seizure, CVA, palpatations, mental health, musculoskeletal)? @ -Differential Headache: Migraine, tension, cluster, carbon monoxide, central venous thrombosis, pension karma temporal arteritis, acute closure glaucoma, intercranial hemorrhage, mastoiditis, sinusitis, head injury, this is not meant to be an all-inclusive list.e] EKG interpreted by me (3pts min.). @ -As above X-rays interpreted by me (1pt min.). @ -None done CT interpreted by me (1pt min.). @ -None done U/S interpreted by me (1pt. min.). @ -None done What testing was considered but not performed or refused? (CT, X-rays, U/S, labs)? Why? @ -None What meds were considered but not given or refused? Why? @ -None Did you discuss the management of the patient with other professionals (professionals i.e. DrWai, PA, MELTER LOADER, lab, RT, psych nurse, social worker masters, linux system engineer, teacher, facility security officer, nurse case management)? Give summary @ -No Was smoking cessation discussed for >3mins.? @ -Yes Was critical care preformed (if so, how long)? @ -No Were there social determinants of health that impacted care today? How? (Homelessness, low income, unemployed, alcoholism, drug addiction, transportation, low edu. Level, literacy, decrease access to med. care, retirement, rehab)? @ -No Was there de-escalation of care discussed even if they declined (Discuss DNR or withdrawal of care, Hospice)? DNR status @ -No What co-morbidities impacted this encounter? (DM, HTN, Smoking, COPD, CAD, Cancer, CVA, ARF, Chemo, Hep., AIDS, mental health diagnosis, sleep apnea, morbid obesity)? @ -Hypertension, obesity Was patient admitted / discharged? Hospital course, mention meds given and route, prescriptions, significant lab abnormalities, going to OR and other pertinent info. @ -Discharge. Patient is a 52-year-old female presented ER chief complaint of hypertension. Upon examination patient pressure was 176/82. Labs obtained in the ER were unimpressive. EKG showed normal sinus rhythm with no acute ST segment or T-wave abnormalities noted. Repeat blood pressure was taken and revealed a blood pressure 169/102. Patient stated she had a appointment with her primary care physician on , 01/14/23, for her blood pressure. I encouraged patient to attend that appointment and to continue monitoring her BP at home. I advised patient to continue taking prescribed blood pressure medications. I also discussed with the patient smoking cessation. Patient was discharged in stable condition with follow-up to PCP. Return parameters were discussed. Patient expressed understanding and agreement with care plan. Undiagnosed new problem with uncertain prognosis? @ -No Drug Therapy requiring intensive monitoring for toxicity (Heparin, Nitro, Insulin, Cardizem)? @ -No Were any procedures done? @ -No Diagnosis/symptom? @ -Hypertension Acute, or Chronic, or Acute on Chronic? @ -Acute on chronic Uncomplicated (without systemic symptoms) or Complicated (systemic symptoms)? @ -Complicated Side effects of treatment? @ -No Exacerbation, Progression, or Severe Exacerbation? @ -No Poses a threat to life or bodily function? How? (Chest pain, [place], [place], pneumonia, PE, COPD, DKA, ARF, appy, cholecystitis, CVA, Diverticulitis, Homicidal, Suicidal, threat to staff... and all critical care pts) @ -No (Barbara Suarez) - Lab Data Lab Results 01/11/23 01/11/23 Range/Units 08:07 08:07 WBC 10.3 (3.8-10.6) k/uL RBC 4.47 (3.80-5.40) m/uL Hgb 13.8 (11.4-16.0) gm/dL Hct 42.7 (34.0-46.0) % MCV 95.5 (80.0-100.0) fL MCH 30.9 (25.0-35.0) pg MCHC 32.3 (31.0-37.0) g/dL RDW 13.3 (11.5-15.5) % Plt Count 272 (150-450) k/uL MPV 8.0 Neutrophils % 65 % Lymphocytes % 28 % Monocytes % 4 % Eosinophils % 1 % Basophils % 0 % Neutrophils # 6.7 (1.3-7.7) k/uL Lymphocytes # 2.9 (1.0-4.8) k/uL Monocytes # 0.4 (0-1.0) k/uL Eosinophils # 0.1 (0-0.7) k/uL Basophils # 0.0 (0-0.2) k/uL Sodium 139 (137-145) mmol/L Potassium 4.2 (3.5-5.1) mmol/L Chloride 106 (98-107) mmol/L Carbon Dioxide 20 L (22-30) mmol/L Anion Gap 13 mmol/L BUN 23 H (7-17) mg/dL Creatinine 0.61 (0.52-1.04) mg/dL Est GFR (CKD-EPI)AfAm >90 (>60 ml/min/1.73 sqM) Est GFR (CKD-EPI)NonAf >90 (>60 ml/min/1.73 sqM) Glucose 100 H (74-99) mg/dL Calcium 9.4 (8.4-10.2) mg/dL Magnesium 2.2 (1.6-2.3) mg/dL Total Bilirubin 0.4 (0.2-1.3) mg/dL AST 28 (14-36) U/L ALT 33 (4-34) U/L Alkaline Phosphatase 51 (38-126) U/L Total Protein 7.4 (6.3-8.2) g/dL Albumin 4.4 (3.5-5.0) g/dL - EKG Data EKG Comments: EKG taken at 8:08 shows normal sinus rhythm with no acute ST segment or T-wave abnormalities noted. Ventricular rate 86, IL interval 158, QRS duration 77, QT/QTC 364/407. (Barbara Suarez) Disposition <Kishan Gee - Last Filed: 01/11/23 07:51> Is patient prescribed a controlled substance at d/c from ED?: No Time of Disposition: 11:11 <Barbara Suarez - Last Filed: 01/11/23 11:26> Clinical Impression: Hypertension Disposition: HOME SELF-CARE Condition: Stable Additional Instructions: Please return to the Emergency Department if symptoms worsen or any other conc erns. Please follow-up with primary care as scheduled on , 01/14/23. Referrals: Olinda Lutz MD [Primary Care Provider] - 1-2 days
[2023-01-11 08:53] VITALS: RESP 18; TEMP 98.3
[2023-01-11 09:31] LABS: Basophils % (A) 0 %; Eosinophils # (A) 0.1 k/uL (0-0.7); Eosinophils % (A) 1 %; HCT 42.7 % (34.0-46.0); HGB 13.8 gm/dL (11.4-16.0); Lymphocytes # (A) 2.9 k/uL (1.0-4.8); Lymphocytes % (A) 28 %; MCH 30.9 pg (25.0-35.0); MCHC 32.3 g/dL (31.0-37.0); MCV 95.5 fL (80.0-100.0); Monocytes # (A) 0.4 k/uL (0-1.0); Monocytes % (A) 4 %; Neutrophils # (A) 6.7 k/uL (1.3-7.7); Neutrophils % (A) 65 %; Platelet Count 272 k/uL (150-450); RBC 4.47 m/uL (3.80-5.40); RDW 13.3 % (11.5-15.5); WBC 10.3 k/uL (3.8-10.6)
[2023-01-11 09:43] LABS: ALT 33 U/L (4-34); AST 28 U/L (14-36); African American GFR (CKD) >90 (>60 ml/min/1.73 sqM); Albumin 4.4 g/dL (3.5-5.0); Alkaline Phosphatase 51 U/L (38-126); Anion Gap 13 mmol/L; Blood Urea Nitrogen 23 mg/dL (7-17); Calcium 9.4 mg/dL (8.4-10.2); Carbon Dioxide 20 mmol/L (22-30); Chloride 106 mmol/L (98-107); Glucose 100 mg/dL (74-99); Magnesium 2.2 mg/dL (1.6-2.3); Non-African American GFR(CKD) >90 (>60 ml/min/1.73 sqM); Potassium 4.2 mmol/L (3.5-5.1); Sodium 139 mmol/L (137-145); Total Bilirubin 0.4 mg/dL (0.2-1.3); Total Protein 7.4 g/dL (6.3-8.2)
[2023-01-11 11:14] VITALS: BP 169/102; PULSE 83
== END 2023-01-11 11:48 | disposition home or self-care (01) ==
LOC: EC 07:33
DX: I10 Essential (primary) hypertension (principal); F17.200 Nicotine dependence, unspecified, uncomplicated; Z88.8 Allergy status to other drugs, medicaments and biological substances
CPT/HCPCS: 36415; 80053; 83735; 85025; 93005; 99283

== ENCOUNTER 2023-02-20 06:19 | Emergency (ER) | payer BC ==
[2023-02-20] MEDS ORDERED: ONDANSETRON 4 MG/2 ML VIAL IVP STA (06:31)
[2023-02-20] MEDS ORDERED: KETOROLAC 15 MG/ML 1 ML VIAL IVP STA (06:31)
[2023-02-20] MEDS ORDERED: PANTOPRAZOLE 40 MG/10 ML VIAL IVP STA (06:31)
[2023-02-20] MEDS ORDERED: SODIUM CHLORIDE 0.9% 1,000 ML IV STA (06:31)
[2023-02-20] MEDS ORDERED: MORPHINE SULFATE 4 MG/ML SYRINGE IVP STA (06:32)
--- NOTE | 2023-02-20 06:35 | ED ---
General Adult HPI - General Source: patient, RN notes reviewed, old records reviewed Mode of arrival: ambulatory Limitations: no limitations <Roberto Dominguez - Last Filed: 02/20/23 06:47> <Alexa Jim - Last Filed: 02/20/23 20:38> - General Chief complaint: Abdominal Pain Stated complaint: abdominal pain Time Seen by Provider: 02/20/23 06:26 - History of Present Illness Initial comments: Patient is a 52-year-old female who presents emergency Department complaining of abdominal pain. Has been on and off for the last 2 weeks. States it is epigastric and right upper quadrant in nature. Endorses nausea but no emesis. Denies any diarrhea. Denies any fevers, chills. Denies any chest pain. No history of abdominal surgeries. No urinary complaints. No cardiac history. Patient is a history of hypertension, fibromyalgia, thyroid disorder. Presents for further evaluation of this time. She is concerned something at home with her gallbladder. (Roberto Dominguez) - Related Data Home Medications Medication Instructions Recorded Confirmed ARIPiprazole [Abilify] 5 mg PO HS 06/16/16 10/23/19 DULoxetine HCL [Cymbalta] 60 mg PO HS 06/16/16 10/23/19 lamoTRIgine [LaMICtal] 200 mg PO BID 06/16/16 10/23/19 lisinopriL [Zestril] 20 mg PO DAILY 10/22/19 10/23/19 Previous Rx's Medication Instructions Recorded amLODIPine [Norvasc] 10 mg PO DAILY #30 tablet 10/23/19 HYDROcodone/APAP 5-325MG [[place] 1 tab PO Q6HR PRN 3 Days #12 tab 02/20/23 5-325] Allergies Allergy/AdvReac Type Severity Reaction Status Date / Time quetiapine fumarate AdvReac Intermediate Confusion Verified 01/11/23 08:33 [From Seroquel] Review of Systems ROS Other: All systems not noted in ROS Statement are negative. <Roberto Dominguez - Last Filed: 02/20/23 06:47> ROS Other: All systems not noted in ROS Statement are negative. <Alexa Jim - Last Filed: 02/20/23 20:38> ROS Statement: Those systems with pertinent positive or pertinent negative responses have been documented in the HPI. Review of Systems: CONST: Denies fever EYES: Denies blurry vision ENT: Denies nasal congestion C/V: Denies Chest pain RESP: Denies shortness of breath GI: Endorses abdominal pain : Denies dysuria SKIN: Denies rash. MSK: Denies joint pain. NEURO: Denies headache (Roberto Dominguez) Past Medical History Past Medical History: Fibromyalgia, Hypertension, Osteoarthritis (OA), Thyroid Disorder History of Any Multi-Drug Resistant Organisms: MRSA Date of last positivie culture/infection: stomach MDRO Source:: 2011 Past Surgical History: Back Surgery, Tubal Ligation, Uterine Ablation Additional Past Surgical History / Comment(s): D& C Past Anesthesia/Blood Transfusion Reactions: No Reported Reaction Past Psychological History: Anxiety, Bipolar, Depression Smoking Status: Current every day smoker Past Drug Use History: Marijuana - Past Family History Father Family Medical History: Myocardial Infarction ([place]) Mother Family Medical History: Diabetes Mellitus Sister(s) Family Medical History: Diabetes Mellitus, Fibromyalgia, Osteoarthritis (OA), Rheumatoid Arthritis (RA) Son(s) Family Medical History: No Reported History <Roberto Dominguez - Last Filed: 02/20/23 06:47> General Exam Limitations: no limitations <Roberto Dominguez - Last Filed: 02/20/23 06:47> - General Exam Comments Initial Comments: General: Appears in no acute distress. HEAD: Normal with no signs of head trauma. EYES: PERRLA, EOMI, conjunctiva normal, no discharge. ENT: Hearing grossly intact, normal oropharynx. RESPIRATORY: Clear breath sounds bilaterally. No wheezes, rales, or rhonchi. C/V: Regular rate and rhythm. S1 and S2 auscultated, no edema, peripheral pulses 2+ and intact throughout ABD: Abd is soft, nondistended. Tender to palpation epigastric region, right upper quadrant. No guarding. No rebound tenderness. No peritoneal signs. EXT: Normal range of motion, no obvious deformity SKIN: No rashes or lesions observed on exposed skin. NEURO: Alert and oriented x 4. (Roberto Dominguez) Course Vital Signs 02/20/23 02/20/23 02/20/23 06:20 08:23 09:24 Temperature 97.7 F Pulse Rate 113 H 72 81 Respiratory 18 17 18 Rate Blood Pressure 149/81 143/83 143/85 O2 Sat by Pulse 99 100 99 Oximetry Medical Decision Making - EKG Data -: EKG Interpreted by Me <Roberto Dominguez - Last Filed: 02/20/23 06:47> - Lab Data Result diagrams: 02/20/23 06:47 02/20/23 06:47 <Alexa Jim - Last Filed: 02/20/23 20:38> - Medical Decision Making Was pt. sent in by a medical professional or institution (, PA, REROLLING MACHINE OPERATOR, urgent care, hospital, or care home...) When possible be specific @ -No Did you speak to anyone other than the patient for history (EMS, parent, family, police, friend...)? What history was obtained from this source @ -No Did you review nursing and triage notes (agree or disagree)? Why? @ -I reviewed and agree with nursing and triage notes Were old charts reviewed (outside hosp., previous admission, EMS record, old EKG, old radiological studies, urgent care reports/EKG's, care home records)? Report findings @ -Old charts reviewed Differential Diagnosis (chest pain, altered mental status, abdominal pain women, abdominal pain men, vaginal bleeding, weakness, fever, dyspnea, syncope, headache, dizziness, GI bleed, back pain, seizure, CVA, palpatations, mental health, musculoskeletal)? @ -Differential Abdominal Pain Women: Appendicitis, Cholecystitis, diverticulosis, ischemic bowel, pancreatitis, hepatitis, UTI, gastroenteritis, AAA, incarcerated hernia, bowel obstruction, c onstipation, inflammatory bowel, hepatitis, peptic ulcer disease, splenic infarction, perforated viscus, vulvitis, ovarian torsion, PID, kidney stone, placenta abruption, this is not meant to be an all-inclusive list EKG interpreted by me (3pts min.). @ -As above X-rays interpreted by me (1pt min.). @ -None done CT interpreted by me (1pt min.). @ -None done U/S interpreted by me (1pt. min.). @ -Pending What testing was considered but not performed or refused? (CT, X-rays, U/S, labs)? Why? @ -None What meds were considered but not given or refused? Why? @ -None Did you discuss the management of the patient with other professionals (professionals i.e. , PA, REROLLING MACHINE OPERATOR, lab, RT, psych nurse, community mental health social worker, wood polisher, teacher, quarantine officer, case management coordinator)? Give summary @ -No Was smoking cessation discussed for >3mins.? @ -No Was critical care preformed (if so, how long)? @ -No Were there social determinants of health that impacted care today? How? (Homelessness, low income, unemployed, alcoholism, drug addiction, transportation, low edu. Level, literacy, decrease access to med. care, alf, rehab)? @ -No Was there de-escalation of care discussed even if they declined (Discuss DNR or withdrawal of care, Hospice)? DNR status @ -No What co-morbidities impacted this encounter? (DM, HTN, Smoking, COPD, CAD, Cancer, CVA, ARF, Chemo, Hep., AIDS, mental health diagnosis, sleep apnea, morbid obesity)? @ -None Was patient admitted / discharged? Hospital course, mention meds given and route, prescriptions, significant lab abnormalities, going to OR and other pertinent info. @ -Based on the patient's presentation and physical exam, presents emergency Department complaining of possible gallbladder issues. We will obtain abdominal laboratory studies as well as atypical ACS rule out. Symptoms have been ongoing for the last 2 weeks. Patient was in agreement this plan. Vital signs within acceptable limits. Patient will be symptomatically treated with IV Toradol, morphine, Zofran, Protonix, 1 L fluid bolus. Patient signed out to oncoming emergency department physician Dr. Jim pending results of workup. Undiagnosed new problem with uncertain prognosis? @ -No Drug Therapy requiring intensive monitoring for toxicity (Heparin, Nitro, Insulin, Cardizem)? @ -No Were any procedures done? @ -No (Roberto Dominguez) Patient was signed out to me from Dr. Dominguez pending ultrasound of the gallbladder. Ultrasound does demonstrate gallstones. I did discuss this with the patient. Informed her that she needs to see a surgeon for removal. Patient was requesting that her gallbladder be removed today. Informed her that there was not an indication for emergent cholecystectomy that the patient needed a follow-up for removal. Patient is extremely dissatisfied with this. She is demanding discharge. Attempted to touch base with the surgeon however the patient states that she will not go to see them. I offered her pain medications to take at home and I did call a short prescription into the pharmacy. Patient's family member was in the room and states that she will attempt to reason with her. I instructed the patient that she should return for any new or worsening symptoms. Patient discharged in stable condition (Alexa Jim) - Lab Data Lab Results 02/20/23 02/20/23 02/20/23 Range/Units 06:47 06:47 06:47 WBC 8.5 (3.8-10.6) k/uL RBC 4.68 (3.80-5.40) m/uL Hgb 14.8 (11.4-16.0) gm/dL Hct 43.8 (34.0-46.0) % MCV 93.7 (80.0-100.0) fL MCH 31.6 (25.0-35.0) pg MCHC 33.7 (31.0-37.0) g/dL RDW 13.0 (11.5-15.5) % Plt Count 284 (150-450) k/uL MPV 8.0 Neutrophils % 71 % Lymphocytes % 22 % Monocytes % 4 % Eosinophils % 1 % Basophils % 1 % Neutrophils # 6.1 (1.3-7.7) k/uL Lymphocytes # 1.9 (1.0-4.8) k/uL Monocytes # 0.3 (0-1.0) k/uL Eosinophils # 0.1 (0-0.7) k/uL Basophils # 0.0 (0-0.2) k/uL PT 10.3 (10.0-12.5) sec INR 0.9 (<1.2) APTT 25.6 (22.0-30.0) sec Sodium 139 (137-145) mmol/L Potassium 4.2 (3.5-5.1) mmol/L Chloride 104 (98-107) mmol/L Carbon Dioxide 24 (22-30) mmol/L Anion Gap 11 mmol/L BUN 20 H (7-17) mg/dL Creatinine 0.69 (0.52-1.04) mg/dL Est GFR (CKD-EPI)AfAm >90 (>60 ml/min/1.73 sqM) Est GFR (CKD-EPI)NonAf >90 (>60 ml/min/1.73 sqM) Glucose 133 H (74-99) mg/dL Plasma Lactic Acid [place] (0.7-2.0) mmol/L Calcium 9.4 (8.4-10.2) mg/dL Total Bilirubin 0.6 (0.2-1.3) mg/dL AST 26 (14-36) U/L ALT 30 (4-34) U/L Alkaline Phosphatase 62 (38-126) U/L Troponin I (0.000-0.034) ng/mL Total Protein 7.7 (6.3-8.2) g/dL Albumin 4.5 (3.5-5.0) g/dL Amylase 42 (30-110) U/L Lipase 49 (23-300) U/L 02/20/23 02/20/23 Range/Units 06:47 06:47 WBC (3.8-10.6) k/uL RBC (3.80-5.40) m/uL Hgb (11.4-16.0) gm/dL Hct (34.0-46.0) % MCV (80.0-100.0) fL MCH (25.0-35.0) pg MCHC (31.0-37.0) g/dL RDW (11.5-15.5) % Plt Count (150-450) k/uL MPV Neutrophils % % Lymphocytes % % Monocytes % % Eosinophils % % Basophils % % Neutrophils # (1.3-7.7) k/uL Lymphocytes # (1.0-4.8) k/uL Monocytes # (0-1.0) k/uL Eosinophils # (0-0.7) k/uL Basophils # (0-0.2) k/uL PT (10.0-12.5) sec INR (<1.2) APTT (22.0-30.0) sec Sodium (137-145) mmol/L Potassium (3.5-5.1) mmol/L Chloride (98-107) mmol/L Carbon Dioxide (22-30) mmol/L Anion Gap mmol/L BUN (7-17) mg/dL Creatinine (0.52-1.04) mg/dL Est GFR (CKD-EPI)AfAm (>60 ml/min/1.73 sqM) Est GFR (CKD-EPI)NonAf (>60 ml/min/1.73 sqM) Glucose (74-99) mg/dL Plasma Lactic Acid [place] 1.0 (0.7-2.0) mmol/L Calcium (8.4-10.2) mg/dL Total Bilirubin (0.2-1.3) mg/dL AST (14-36) U/L ALT (4-34) U/L Alkaline Phosphatase (38-126) U/L Troponin I <0.012 (0.000-0.034) ng/mL Total Protein (6.3-8.2) g/dL Albumin (3.5-5.0) g/dL Amylase (30-110) U/L Lipase (23-300) U/L - EKG Data EKG Comments: 12-lead Electrocardiogram Interpretation Note EKG was reviewed and interpreted by myself. 12-lead ECG performed at 0641 is interpreted by me as revealing normal sinus rhythm at a rate of 88 beats per minute. [place] is normal. CO interval is 161 ms, QRS duration is 85 ms, QTc is 417.. There were no ST or T wave abnormalities to suggest myocardial ischemia or injury. R wave progression across the precordium was satisfactory. By my interpretation this EKG is non-diagnostic for acute ischemia. (Roberto Dominguez) Disposition <Roberto Dominguez - Last Filed: 02/20/23 06:47> Is patient prescribed a controlled substance at d/c from ED?: Yes When asked, does pt state using other controlled substances?: No If prescribed controlled substance>3 days was MAPS reviewed?: Prescribed <3 Days Time of Disposition: 09:16 <Alexa Jim - Last Filed: 02/20/23 20:38> Clinical Impression: Cholelithiasis, RUQ pain Disposition: HOME SELF-CARE Condition: Stable Instructions (If sedation given, give patient instructions): Gallstones (ED) Additional Instructions: You need to see a surgeon to have your gallbladder out. Prescriptions: HYDROcodone/APAP 5-325MG [[place] 5-325] 1 tab PO Q6HR PRN 3 Days #12 tab PRN Reason: Severe Breakthrough Pain Referrals: Olinda Lutz MD [Primary Care Provider] - 1-2 days Jose Myers MD [STAFF PHYSICIAN] - 1-2 days Cherry Mckeon MD [STAFF PHYSICIAN] - 1-2 days
[2023-02-20 06:46] VITALS: TEMP 97.7
[2023-02-20 07:04] LABS: Basophils % (A) 1 %; Eosinophils # (A) 0.1 k/uL (0-0.7); Eosinophils % (A) 1 %; HCT 43.8 % (34.0-46.0); HGB 14.8 gm/dL (11.4-16.0); Lymphocytes # (A) 1.9 k/uL (1.0-4.8); Lymphocytes % (A) 22 %; MCH 31.6 pg (25.0-35.0); MCHC 33.7 g/dL (31.0-37.0); MCV 93.7 fL (80.0-100.0); Monocytes # (A) 0.3 k/uL (0-1.0); Monocytes % (A) 4 %; Neutrophils # (A) 6.1 k/uL (1.3-7.7); Neutrophils % (A) 71 %; Platelet Count 284 k/uL (150-450); RBC 4.68 m/uL (3.80-5.40); WBC 8.5 k/uL (3.8-10.6)
[2023-02-20 07:15] LABS: ALT 30 U/L (4-34); AST 26 U/L (14-36); African American GFR (CKD) >90 (>60 ml/min/1.73 sqM); Albumin 4.5 g/dL (3.5-5.0); Alkaline Phosphatase 62 U/L (38-126); Amylase 42 U/L (30-110); Anion Gap 11 mmol/L; Blood Urea Nitrogen 20 mg/dL (7-17); Calcium 9.4 mg/dL (8.4-10.2); Carbon Dioxide 24 mmol/L (22-30); Chloride 104 mmol/L (98-107); Glucose 133 mg/dL (74-99); Lipase 49 U/L (23-300); Non-African American GFR(CKD) >90 (>60 ml/min/1.73 sqM); Potassium 4.2 mmol/L (3.5-5.1); Sodium 139 mmol/L (137-145); Total Bilirubin 0.6 mg/dL (0.2-1.3); Total Protein 7.7 g/dL (6.3-8.2)
[2023-02-20 07:17] LABS: INR 0.9 (<1.2); Partial Thromboplastin Time 25.6 sec (22.0-30.0); Prothrombin Time 10.3 sec (10.0-12.5)
--- NOTE | 2023-02-20 09:00 | US ---
EXAMINATION TYPE: US gallbladder DATE OF EXAM: 02/20/2023 COMPARISON: NONE CLINICAL INDICATION: Female, 52 years old with history of pain; epigastric swelling x 2 weeks, unable to eat TECHNIQUE: Multiple sonographic images of the right upper quadrant are obtained. FINDINGS: EXAM MEASUREMENTS: Liver Length: 18.7 cm Gallbladder Wall: 0.2 cm CBD: 0.3 cm Right Kidney: 11.5x4.7x5.7 cm STEAM PRESSER NOTES: Pancreas: Tail obscured by overlying bowel gas Liver: enlarged and echogenic Gallbladder: 1cm shadowing echogenic foci Evidence for sonographic Cohn's sign: No CBD: wnl Right Kidney: No hydronephrosis or masses seen exam limited by bowel and body habitus IMPRESSION: 1. Hepatomegaly. 2. Cholelithiasis no suspicious acute cholecystitis
[2023-02-20 09:36] VITALS: BP 143/85; PULSE 81; RESP 18
== END 2023-02-20 09:31 | disposition home or self-care (01) ==
LOC: EC 06:19
DX: K80.20 Calculus of gallbladder without cholecystitis without obstruction (principal); I10 Essential (primary) hypertension; M19.90 Unspecified osteoarthritis, unspecified site; F41.9 Anxiety disorder, unspecified; F31.9 Bipolar disorder, unspecified; F12.90 Cannabis use, unspecified, uncomplicated; F17.200 Nicotine dependence, unspecified, uncomplicated; Z79.899 Other long term (current) drug therapy; Z88.8 Allergy status to other drugs, medicaments and biological substances
CPT/HCPCS: 36415; 93005; 80053; 82150; 83605; 83690; 84484; 85025; 85610; 85730; 76705; 99284; 96374; 96375 ×3; 96361 ×2; J2270; J2405; J1885; C9113